=== PATIENT | female | born 1955 | race Caucasian/White ===

== ENCOUNTER 2018-11-05 08:40 | Day surgery (SDC) | payer BC ==
[2018-11-05] MEDS ORDERED: PROPOFOL 10 MG/ML VIAL IV ONE (08:41)
[2018-11-05] MEDS ORDERED: LIDOCAINE 2% MDV (20MG/ML) 20ML VIAL IV ONE (08:41)
--- NOTE | 2018-11-06 07:20 | Operative Note ---
OPERATION: COLONOSCOPY with cold snare polypectomy x1. PREOPERATIVE DIAGNOSIS: Colon cancer screening, average risk. POSTOPERATIVE DIAGNOSES: 1. Ascending colon polyp. 2. Significant diverticulosis. PREPARATION QUALITY: Good to excellent. ESTIMATED BLOOD LOSS: Minimum. SPECIMENS: Ascending colon polyp. COMPLICATIONS: None apparent. PROCEDURE: After informed consent was obtained from the patient, she was placed in the left lateral decubitus position in the endoscopy suite, sedated and monitored by the department of anesthesia. Digital rectal exam was unremarkable. A well-lubricated [id number] adult colonoscope was inserted into the rectum and advanced to the cecum. Preparation quality was good to excellent. The cecum, cecal bulb, ileocecal valve, and appendiceal orifice were identified and were unremarkable. A second inspection of the cecum was also performed and was unremarkable. In the ascending colon there was a 5 mm sessile polyp removed with a cold snare. Minimal bleeding was noted. The remainder of the ascending colon, transverse colon, and descending colon were unremarkable. There were mild diverticular changes in the sigmoid colon. No polyps were seen. The rectum was unremarkable in forward and in J-turn views. The endoscope was straightened, the rectal ampulla deflated, and the endoscope was removed. RECOMMENDATIONS: The patient should follow a high-fiber diet. She will require repeat exam in 5 years pending tissue histology. As always, thank you for allowing me to participate in the healthcare of your patients. CC: DO NIECY Rosado
== END 2018-11-05 10:15 | disposition home or self-care (01) ==
LOC: HOP 08:40
PROVIDERS: ATTEND Internal Medicine Gastroenterology
DX: Z12.11 Encounter for screening for malignant neoplasm of colon (principal); D12.2 Benign neoplasm of ascending colon; K57.30 Diverticulosis of large intestine without perforation or abscess without bleeding; J45.909 Unspecified asthma, uncomplicated; K21.9 Gastro-esophageal reflux disease without esophagitis